=== PATIENT | female | born 1975 | race Caucasian/White ===

== ENCOUNTER 2023-10-15 19:53 | Inpatient (IN) | payer OTHER ==
[2023-10-16] MEDS ORDERED: BENZONATATE 200 MG CAPSULE PO PRN (02:25)
[2023-10-16] MEDS ORDERED: ACETAMINOPHEN 325 MG TABLET (FP) PO PRN (02:25)
[2023-10-16] MEDS ORDERED: POLYETHYLENE GLYCOL (HEALTHYLAX) 3350 17 GM PACKET PO PRN (02:25)
[2023-10-16] MEDS ORDERED: IBUPROFEN 600 MG TABLET (FP) PO PRN (02:25)
[2023-10-16] MEDS ORDERED: MAG HYDROX/AL HYDROX/SIMETH 30 ML UNIT-DOSE CUP PO PRN (02:25)
[2023-10-16] MEDS ORDERED: NALOXONE HCL 0.4 MG/ML VIAL IM PRN (02:25)
[2023-10-16] MEDS ORDERED: NALOXONE HCL (KLOXXADO) 8 MG SPRAY NS PRN (02:25)
[2023-10-16] MEDS ORDERED: guaiFENesin 600 MG TABLET.ER (FP) PO PRN (02:25)
[2023-10-16] MEDS ORDERED: P-EPHED 60MG/TRIPROLIDI 2.5MG TABLET PO PRN (02:25)
[2023-10-16] MEDS ORDERED: BISACODYL 5 MG TABLET.DR (FP) PO PRN (02:25)
[2023-10-16] MEDS ORDERED: LOPERAMIDE HCL 2 MG CAPSULE PO PRN (02:25)
[2023-10-16] MEDS ORDERED: MAGNESIUM HYDROX 2400MG/30ML ORAL SUSPENSION 30 ML CUP PO PRN (02:25)
[2023-10-16] MEDS ORDERED: BENZOCAINE/MENTHOL (CHLORASEPTIC ) LOZENGE MM PRN (02:25)
[2023-10-16] MEDS: QUEtiapine FUMARATE 300 MG TABLET PO ONE (03:20)
[2023-10-16] MEDS: traZODone HCL 50 MG TABLET (FP) PO ONE (03:20)
[2023-10-16] MEDS ORDERED: methaDONE HCL 10 MG TABLET PO SCH (08:15)
[2023-10-16] MEDS ORDERED: TUBERCULIN PPD 5 TU/0.1ML VIAL ID ONE (11:39)
[2023-10-16] MEDS: GABAPENTIN 300 MG CAPSULE PO SCH (11:50)
[2023-10-16] MEDS: CITALOPRAM HYDROBROMIDE 20 MG TABLET PO SCH (11:51)
[2023-10-16] MEDS: PRENATAL VITAMINS W/ FOLIC ACID TABLET (FP) PO SCH (11:51)
[2023-10-16] MEDS: PANTOPRAZOLE 20 MG TABLET PO SCH (11:53)
[2023-10-16] MEDS: TUBERCULIN PPD 5 TU/0.1ML SYRINGE (IN PATIENT USE ONLY) ID ONE (11:57)
[2023-10-16 14:40] LABS: EPI CELLS >36 /uL (0-25.1); HYALINE CASTS 1 /uL (0-3.1); PH,URINE 5.5 (5.0-8.0); URINE APPEARANCE CLEAR; URINE BACTERIA 450 /uL (0-1359); URINE BILIRUBIN NEGATIVE (NEGATIVE); URINE COLOR YELLOW; URINE GLUCOSE (UA) NEGATIVE (NEGATIVE); URINE KETONE NEGATIVE (NEGATIVE); URINE LEUK ESTERASE TRACE (NEGATIVE); URINE NITRITE NEGATIVE (NEGATIVE); URINE PROTEIN NEGATIVE (NEGATIVE); URINE RBC 16 /uL (0-23.9); URINE UROBILINOGEN 0.2 mg/dL (0.2-1.0); URINE WBC 78 /uL (0-25.8)
[2023-10-16] MEDS: THIAMINE 100 MG TABLET PO SCH (21:18)
[2023-10-16] MEDS: QUEtiapine FUMARATE 300 MG TABLET PO SCH (21:18)
[2023-10-17 11:38] LABS: HEMATOCRIT 34.2 % (32.4-45.2); HEMOGLOBIN 11.6 GM/dL (10.7-15.3); MCH 29.2 pg (25.7-33.7); MEAN CELL VOLUME 85.9 fl (80-96); MEAN PLT VOLUME 9.8 fl (7.5-11.1); PLATELET COUNT 135 10^3/uL (134-434); RBC 3.98 M/mm3 (3.60-5.2); RDW 14.5 % (11.6-15.6); WHITE BLOOD COUNT 3.2 K/mm3 (4.0-10.0)
[2023-10-17 12:08] LABS: POTASSIUM 3.8 mmol/L (3.5-5.1)
[2023-10-17 12:21] LABS: BLOOD UREA NITROGEN 33.2 mg/dL (7-18); CALCIUM 8.4 mg/dL (8.5-10.1)
[2023-10-17 12:24] LABS: CREATININE 0.7 mg/dL (0.55-1.3)
[2023-10-17 12:25] LABS: BILIRUBIN,TOTAL 0.2 mg/dL (0.2-1)
[2023-10-17] MEDS: DOCUSATE SODIUM 100 MG CAPSULE (FP) PO PRN (21:21)
[2023-10-17] MEDS: traZODone HCL 100 MG TABLET (FP) PO SCH (21:22)
[2023-10-17] MEDS: GABAPENTIN 400 MG CAPSULE PO SCH (21:22)
[2023-10-17] MEDS: METHOCARBAMOL 500 MG TABLET PO PRN (21:24)
[2023-10-18] MEDS: PANTOPRAZOLE 20 MG TABLET PO SCH (06:57)
[2023-10-18 12:21] LABS: INR 1.04 (0.83-1.09); PROTHROMBIN TIME (PATIENT) 12.1 SEC (9.7-13.0)
[2023-10-20] MEDS: CHOLECALCIFEROL (VIT D3) 400 UNIT (10 MCG) TABLET PO SCH (10:11)
[2023-10-22] MEDS: PANTOPRAZOLE 20 MG TABLET PO SCH (12:05)
[2023-10-25] MEDS: GABAPENTIN 300 MG CAPSULE PO SCH (21:19)
[2023-10-26] MEDS: ONDANSETRON *ODT* 4 MG TABLET SL ONE (10:05)
[2023-10-26] MEDS: methaDONE HCL 10 MG TABLET PO ONE ×2 (11:11→14:44)
[2023-10-26] MEDS: LACTULOSE 20 GM/30 ML UDC (FOR ORAL USE ONLY) PO SCH (14:41)
[2023-10-27 07:14] VITALS: RESP 16
[2023-10-29 06:48] VITALS: BP 102/70; PULSE 83; TEMP 96.7
[2023-10-29 13:03] LABS: BASO % 0.4 % (0-2.0); EOS % 2.8 % (0-4.5); HEMATOCRIT 35.9 % (32.4-45.2); HEMOGLOBIN 11.8 GM/dL (10.7-15.3); LYMPH % 34.7 % (8-40); MCH 28.7 pg (25.7-33.7); MEAN PLT VOLUME 9.8 fl (7.5-11.1); MONO % 11.5 % (3.8-10.2); NEUT % 50.6 % (42.8-82.8); PLATELET COUNT 131 10^3/uL (134-434); POTASSIUM 4.3 mmol/L (3.5-5.1); RBC 4.13 M/mm3 (3.60-5.2); RDW 15.4 % (11.6-15.6); WHITE BLOOD COUNT 3.9 K/mm3 (4.0-10.0)
[2023-10-29 13:11] LABS: CREATININE 0.7 mg/dL (0.55-1.3)
[2023-10-29 13:12] LABS: BILIRUBIN,TOTAL 0.3 mg/dL (0.2-1)
[2023-10-29 13:13] LABS: CALCIUM 9.3 mg/dL (8.5-10.1)
[2023-10-29 13:15] LABS: ALBUMIN 3.4 g/dl (3.4-5.0); BLOOD UREA NITROGEN 25.6 mg/dL (7-18)
[2023-10-29] MEDS: IBUPROFEN 400 MG TABLET (FP) PO PRN (13:31)
== END 2023-10-29 13:55 | disposition home or self-care (01) | DRG 772 ==
LOC: YASAS 19:53 → Y5N 10-16 02:59
PROVIDERS: ADMIT Allergy & Immunology; ATTEND Psychiatry & Neurology Pain Medicine
PROC: HZ42ZZZ Group Counseling for Substance Abuse Treatment, Cognitive-Behavioral (ICD-10-PCS; principal; 2023-10-16)
DX: F10.20 Alcohol dependence, uncomplicated (principal); F11.20 Opioid dependence, uncomplicated; F17.210 Nicotine dependence, cigarettes, uncomplicated; F31.9 Bipolar disorder, unspecified; F19.280 Other psychoactive substance dependence with psychoactive substance-induced anxiety disorder; F19.282 Other psychoactive substance dependence with psychoactive substance-induced sleep disorder; E72.20 Disorder of urea cycle metabolism, unspecified; K21.9 Gastro-esophageal reflux disease without esophagitis; M19.041 Primary osteoarthritis, right hand; M19.042 Primary osteoarthritis, left hand; Z91.410 Personal history of adult physical and sexual abuse; Z63.0 Problems in relationship with spouse or partner; Z59.01 Sheltered homelessness; Z56.0 Unemployment, unspecified
CPT/HCPCS: 36415; 80053; 80305; 80307; 81003; 81025; 82140; 82306; 83735; 85025; 85027; 85610; 86780; 86803; 87522; 93005; 93010; Q0162

== ENCOUNTER 2024-04-04 18:18 | Inpatient (IN) | payer OTHER ==
[2024-04-04 18:56] VITALS: BMI 20.2
[2024-04-04] MEDS ORDERED: P-EPHED 60MG/TRIPROLIDI 2.5MG TABLET PO PRN (19:34)
[2024-04-04] MEDS ORDERED: ONDANSETRON *ODT* 4 MG TABLET SL PRN (19:34)
[2024-04-04] MEDS ORDERED: NALOXONE (NARCAN) HCL 4 MG/0.1 ML SPRAY NS PRN (19:34)
[2024-04-04] MEDS ORDERED: BENZONATATE 200 MG CAPSULE PO PRN (19:34)
[2024-04-04] MEDS ORDERED: ACETAMINOPHEN 325 MG TABLET (FP) PO PRN (19:34)
[2024-04-04] MEDS ORDERED: BISMUTH SUBSALICYLATE 524 MG/30 ML PO PRN (19:34)
[2024-04-04] MEDS ORDERED: DICYCLOMINE HCL 10 MG CAPSULE PO PRN (19:34)
[2024-04-04] MEDS ORDERED: IBUPROFEN 600 MG TABLET (FP) PO PRN (19:34)
[2024-04-04] MEDS ORDERED: POLYETHYLENE GLYCOL (HEALTHYLAX) 3350 17 GM PACKET PO PRN (19:34)
[2024-04-04] MEDS ORDERED: BENZOCAINE/MENTHOL (CHLORASEPTIC ) LOZENGE MM PRN (19:34)
[2024-04-04] MEDS ORDERED: IBUPROFEN 400 MG TABLET (FP) PO PRN (19:34)
[2024-04-04] MEDS ORDERED: LOPERAMIDE HCL 2 MG CAPSULE PO PRN (19:34)
[2024-04-04] MEDS ORDERED: guaiFENesin 600 MG TABLET.ER (FP) PO PRN (19:34)
[2024-04-04] MEDS ORDERED: NICOTINE POLACRILEX 2 MG GUM BUC PRN (19:34)
[2024-04-04] MEDS ORDERED: NICOTINE POLACRILEX 2 MG LOZENGE BC PRN (19:34)
[2024-04-04] MEDS ORDERED: MAG HYDROX/AL HYDROX/SIMETH 30 ML UNIT-DOSE CUP PO PRN (19:34)
[2024-04-04] MEDS ORDERED: MAGNESIUM HYDROX 2400MG/30ML ORAL SUSPENSION 30 ML CUP PO PRN (19:34)
[2024-04-05] MEDS ORDERED: ACETAMINOPHEN 325 MG TABLET (FP) ONE (03:13)
[2024-04-05] MEDS: NALOXONE (NYS OPIOID OVERDOSE PROGRAM) 4 MG/0.1 ML SPRAY NS ONE (03:48)
[2024-04-05] MEDS: THIAMINE 100 MG TABLET PO SCH (03:49)
[2024-04-05] MEDS: MELATONIN 5 MG TABLETS PO SCH (03:49)
[2024-04-05] MEDS: PANTOPRAZOLE 20 MG TABLET PO SCH (07:21)
[2024-04-05] MEDS: PRENATAL VITAMINS W/ FOLIC ACID TABLET (FP) PO SCH (10:01)
[2024-04-05] MEDS: methaDONE HCL 10 MG TABLET PO SCH (11:06)
[2024-04-05] MEDS: CITALOPRAM HYDROBROMIDE 20 MG TABLET PO SCH (11:32)
[2024-04-05] MEDS: GABAPENTIN 300 MG CAPSULE PO SCH (13:26)
[2024-04-05] MEDS ORDERED: traZODone HCL 100 MG TABLET (FP) PO SCH (22:00)
[2024-04-05] MEDS: QUEtiapine FUMARATE 300 MG TABLET PO SCH (22:29)
[2024-04-05] MEDS: METHOCARBAMOL 500 MG TABLET PO PRN (22:31)
[2024-04-07] MEDS ORDERED: NALOXONE (NYS OPIOID OVERDOSE PROGRAM) 4 MG/0.1 ML SPRAY NS PRN (12:04)
[2024-04-07 12:59] VITALS: BP 118/58; PULSE 76; RESP 16; TEMP 97.4
== END 2024-04-07 14:50 | disposition home or self-care (01) | DRG 773 ==
LOC: YASAS 18:18 → Y6N 04-05 02:41
PROVIDERS: ADMIT Allergy & Immunology; ATTEND Surgery
PROC: HZ2ZZZZ Detoxification Services for Substance Abuse Treatment (ICD-10-PCS; principal; 2024-04-05)
DX: F10.230 Alcohol dependence with withdrawal, uncomplicated (principal); F13.20 Sedative, hypnotic or anxiolytic dependence, uncomplicated; F11.20 Opioid dependence, uncomplicated; F17.213 Nicotine dependence, cigarettes, with withdrawal; F25.0 Schizoaffective disorder, bipolar type; F19.282 Other psychoactive substance dependence with psychoactive substance-induced sleep disorder; F19.280 Other psychoactive substance dependence with psychoactive substance-induced anxiety disorder; F19.24 Other psychoactive substance dependence with psychoactive substance-induced mood disorder; K21.9 Gastro-esophageal reflux disease without esophagitis; M19.041 Primary osteoarthritis, right hand; M19.042 Primary osteoarthritis, left hand; Z86.69 Personal history of other diseases of the nervous system and sense organs; S09.90XA Unspecified injury of head, initial encounter; W07.XXXA Fall from chair, initial encounter; Y92.238 Other place in hospital as the place of occurrence of the external cause; Z56.0 Unemployment, unspecified; Z59.01 Sheltered homelessness
CPT/HCPCS: 70450-TC; 72125-TC; 80305; 80307; 81025; 93005; 93010

== ENCOUNTER 2024-11-23 10:34 | Inpatient (IN) | payer OTHER ==
[2024-11-23 11:17] VITALS: BMI 26.6
[2024-11-23] MEDS ORDERED: DICYCLOMINE HCL 10 MG CAPSULE PO PRN (12:06)
[2024-11-23] MEDS ORDERED: BENZOCAINE/MENTHOL (CHLORASEPTIC ) LOZENGE MM PRN (12:06)
[2024-11-23] MEDS ORDERED: NALOXONE (NARCAN) HCL 4 MG/0.1 ML SPRAY NS PRN (12:06)
[2024-11-23] MEDS ORDERED: BENZONATATE 200 MG CAPSULE PO PRN (12:06)
[2024-11-23] MEDS ORDERED: ACETAMINOPHEN 325 MG TABLET (FP) PO PRN (12:06)
[2024-11-23] MEDS ORDERED: ONDANSETRON *ODT* 4 MG TABLET SL PRN (12:06)
[2024-11-23] MEDS ORDERED: LOPERAMIDE HCL 2 MG CAPSULE PO PRN (12:06)
[2024-11-23] MEDS ORDERED: NICOTINE POLACRILEX 2 MG LOZENGE BC PRN (12:06)
[2024-11-23] MEDS ORDERED: IBUPROFEN 400 MG TABLET (FP) PO PRN (12:06)
[2024-11-23] MEDS ORDERED: MAGNESIUM HYDROX 2400MG/30ML ORAL SUSPENSION 30 ML CUP PO PRN (12:06)
[2024-11-23] MEDS ORDERED: MAG HYDROX/AL HYDROX/SIMETH 30 ML UNIT-DOSE CUP PO PRN (12:06)
[2024-11-23] MEDS ORDERED: POLYETHYLENE GLYCOL (HEALTHYLAX) 3350 17 GM PACKET PO PRN (12:06)
[2024-11-23] MEDS ORDERED: BISMUTH SUBSALICYLATE 524 MG/30 ML PO PRN (12:06)
[2024-11-23] MEDS: MELATONIN 5 MG TABLETS PO SCH (22:33)
[2024-11-23] MEDS: THIAMINE 100 MG TABLET PO SCH (22:33)
[2024-11-23] MEDS: METHOCARBAMOL 500 MG TABLET PO PRN (22:33)
[2024-11-23] MEDS: IBUPROFEN 600 MG TABLET (FP) PO PRN (22:36)
[2024-11-24] MEDS ORDERED: methaDONE HCL 10 MG TABLET PO ONE (08:48)
[2024-11-24] MEDS: PRENATAL VITAMINS W/ FOLIC ACID TABLET (FP) PO SCH (09:32)
[2024-11-24 10:01] LABS: HEMATOCRIT 37.1 % (34.1-44.9); HEMOGLOBIN 11.5 g/dL (11.2-15.7); MEAN CELL VOLUME 88.8 fl (79.4-94.8); MEAN PLT VOLUME 11.5 fl (9.4-12.3); PLATELET COUNT 144 x10^3/uL (182-369); RDW 15.2 % (12.2-17.1)
[2024-11-24] MEDS: guaiFENesin 600 MG TABLET.ER (FP) PO PRN (10:08)
[2024-11-24] MEDS: diazePAM 5 MG TABLET PO SCH (10:09)
[2024-11-24 10:13] LABS: CHLORIDE 106 mmol/L (98-107); SODIUM 141 mmol/L (136-145)
[2024-11-24 10:29] LABS: ANION GAP 6 mmol/L (4-13); BLOOD UREA NITROGEN 21.8 mg/dL (7-18); CO2 29 mmol/L (21-32); GLUCOSE,RANDOM 147 mg/dL (74-106)
[2024-11-24 10:32] LABS: CREATININE 0.7 mg/dL (0.55-1.3); SGOT/AST 18 U/L (15-37); SGPT/ALT 24 U/L (13-61)
[2024-11-24 10:34] LABS: BILIRUBIN,TOTAL 0.2 mg/dL (0.2-1)
[2024-11-24 10:35] LABS: ALK PHOS 137 U/L (45-117)
[2024-11-24] MEDS: FAMOTIDINE 20 MG TABLET PO SCH (11:24)
[2024-11-24] MEDS: QUEtiapine FUMARATE 300 MG TABLET PO SCH (22:08)
[2024-11-24] MEDS: GABAPENTIN 400 MG CAPSULE PO SCH (22:08)
[2024-11-25] MEDS: diazePAM 5 MG TABLET PO SCH (05:56)
[2024-11-25] MEDS ORDERED: methaDONE HCL 40 MG DISPERSABLE TABLET PO ONE (09:09)
[2024-11-25] MEDS: CITALOPRAM HYDROBROMIDE 20 MG TABLET PO SCH (09:35)
[2024-11-25] MEDS: cloNIDine HCL 0.1 MG TABLET PO SCH (13:11)
[2024-11-25] MEDS: diazePAM 5 MG TABLET PO PRN (17:27)
[2024-11-25] MEDS: NICOTINE POLACRILEX 2 MG GUM BUC PRN (22:06)
[2024-11-26] MEDS: FAMOTIDINE 20 MG TABLET PO SCH (05:38)
[2024-11-26] MEDS: diazePAM 5 MG TABLET PO SCH (05:39)
[2024-11-26] MEDS ORDERED: methaDONE HCL 40 MG DISPERSABLE TABLET PO SCH (06:00)
[2024-11-26] MEDS: methaDONE HCL 10 MG TABLET PO ONE (10:44)
[2024-11-27] MEDS ORDERED: cloNIDine HCL 0.1 MG TABLET PO PRN
[2024-11-27] MEDS: diazePAM 5 MG TABLET PO ONE (06:06)
[2024-11-27] MEDS ORDERED: methaDONE HCL 10 MG TABLET PO ONE (10:00)
[2024-11-27] MEDS: methaDONE HCL 10 MG TABLET PO ONE (11:30)
[2024-11-27 13:05] VITALS: BP 104/60; PULSE 89; RESP 18; TEMP 97.6
[2024-11-28] MEDS ORDERED: methaDONE HCL 10 MG TABLET PO ONE (10:00)
[2024-11-30] MEDS ORDERED: methaDONE HCL 10 MG TABLET PO ONE (10:00)
== END 2024-11-27 02:25 | disposition other institution (70) | DRG 773 ==
LOC: YASAS 10:34 → Y6N 13:01
PROVIDERS: ADMIT Allergy & Immunology; ATTEND Allergy & Immunology
PROC: HZ2ZZZZ Detoxification Services for Substance Abuse Treatment (ICD-10-PCS; principal; 2024-11-23)
DX: F10.230 Alcohol dependence with withdrawal, uncomplicated (principal); F13.230 Sedative, hypnotic or anxiolytic dependence with withdrawal, uncomplicated; F11.20 Opioid dependence, uncomplicated; F14.20 Cocaine dependence, uncomplicated; F17.210 Nicotine dependence, cigarettes, uncomplicated; F25.0 Schizoaffective disorder, bipolar type; F31.9 Bipolar disorder, unspecified; F19.24 Other psychoactive substance dependence with psychoactive substance-induced mood disorder; F41.9 Anxiety disorder, unspecified; K21.9 Gastro-esophageal reflux disease without esophagitis; M19.041 Primary osteoarthritis, right hand; M19.042 Primary osteoarthritis, left hand; Z99.89 Dependence on other enabling machines and devices; Z59.01 Sheltered homelessness
CPT/HCPCS: 36415; 80053; 80305; 80307; 81025; 85027; 86780

== ENCOUNTER 2024-11-27 14:28 | Inpatient (IN) | payer OTHER ==
[2024-11-27] MEDS ORDERED: MAG HYDROX/AL HYDROX/SIMETH 30 ML UNIT-DOSE CUP PO PRN (15:37)
[2024-11-27] MEDS ORDERED: MAGNESIUM HYDROX 2400MG/30ML ORAL SUSPENSION 30 ML CUP PO PRN (15:37)
[2024-11-27] MEDS ORDERED: BENZONATATE 200 MG CAPSULE PO PRN (15:37)
[2024-11-27] MEDS ORDERED: NICOTINE 14 MG/24 HOURS TOPICAL PATCH TD PRN (15:37)
[2024-11-27] MEDS ORDERED: guaiFENesin 600 MG TABLET.ER (FP) PO PRN (15:37)
[2024-11-27] MEDS ORDERED: NALOXONE HCL 0.4 MG/ML VIAL IVPUSH PRN (15:37)
[2024-11-27] MEDS ORDERED: BENZOCAINE/MENTHOL (CHLORASEPTIC ) LOZENGE MM PRN (15:37)
[2024-11-27] MEDS ORDERED: POLYETHYLENE GLYCOL (HEALTHYLAX) 3350 17 GM PACKET PO PRN (15:37)
[2024-11-27] MEDS ORDERED: NALOXONE (NARCAN) HCL 4 MG/0.1 ML SPRAY NS PRN (15:37)
[2024-11-27] MEDS ORDERED: LOPERAMIDE HCL 2 MG CAPSULE PO PRN (15:37)
[2024-11-27] MEDS ORDERED: hydrOXYzine PAMOATE 25 MG CAPSULE (FP) PO PRN (15:37)
[2024-11-27] MEDS ORDERED: METHOCARBAMOL 500 MG TABLET PO PRN (15:37)
[2024-11-27] MEDS ORDERED: NICOTINE POLACRILEX 4 MG LOZENGE BC PRN (15:37)
[2024-11-27] MEDS ORDERED: NICOTINE POLACRILEX 4 MG GUM BUC PRN (15:37)
[2024-11-27] MEDS: IBUPROFEN 600 MG TABLET (FP) PO PRN (17:57)
[2024-11-27] MEDS: ONDANSETRON *ODT* 4 MG TABLET SL PRN (17:57)
[2024-11-27] MEDS: GABAPENTIN 400 MG CAPSULE PO SCH (23:49)
[2024-11-27] MEDS: THIAMINE 100 MG TABLET PO SCH (23:49)
[2024-11-27] MEDS: QUEtiapine FUMARATE 300 MG TABLET PO SCH (23:49)
[2024-11-27] MEDS: MELATONIN 5 MG TABLETS PO SCH (23:49)
[2024-11-28] MEDS ORDERED: methaDONE HCL 40 MG DISPERSABLE TABLET PO SCH (06:00)
[2024-11-28] MEDS: FAMOTIDINE 20 MG TABLET PO SCH (07:15)
[2024-11-28] MEDS: IBUPROFEN 400 MG TABLET (FP) PO PRN (09:44)
[2024-11-28] MEDS: CITALOPRAM HYDROBROMIDE 20 MG TABLET PO SCH (09:44)
[2024-11-28] MEDS: PRENATAL VITAMINS W/ FOLIC ACID TABLET (FP) PO SCH (09:44)
[2024-11-28] MEDS ORDERED: TUBERCULIN PPD 5 TU/0.1ML VIAL ID ONE (12:24)
[2024-11-28 13:08] LABS: HIV INTERPRETATION NEGATIVE (NEGATIVE)
[2024-11-28] MEDS: ACETAMINOPHEN 325 MG TABLET (FP) PO PRN (17:24)
[2024-11-28 20:09] VITALS: BP 131/74; PULSE 63; RESP 16; TEMP 97.3
[2024-11-28] MEDS ORDERED: MELATONIN 5 MG TABLETS PO PRN (22:00)
== END 2024-11-29 08:44 | disposition short-term general hospital (02) | DRG 772 ==
LOC: YASAS 14:28 → Y5N 14:31
PROVIDERS: ADMIT Psychiatry & Neurology Pain Medicine; ATTEND Psychiatry & Neurology Pain Medicine
PROC: HZ42ZZZ Group Counseling for Substance Abuse Treatment, Cognitive-Behavioral (ICD-10-PCS; principal; 2024-11-27)
DX: F11.10 Opioid abuse, uncomplicated (principal); F14.20 Cocaine dependence, uncomplicated; F10.20 Alcohol dependence, uncomplicated; F17.210 Nicotine dependence, cigarettes, uncomplicated; F31.9 Bipolar disorder, unspecified; F41.9 Anxiety disorder, unspecified; J18.9 Pneumonia, unspecified organism; K21.9 Gastro-esophageal reflux disease without esophagitis; M19.041 Primary osteoarthritis, right hand; M19.042 Primary osteoarthritis, left hand; R09.02 Hypoxemia; R40.0 Somnolence; Z59.01 Sheltered homelessness
CPT/HCPCS: 0241U-QW; 36415; 87389; 87811; Q0162

== ENCOUNTER 2024-12-20 11:59 | Inpatient (IN) | payer OTHER ==
[2024-12-20] MEDS ORDERED: ACETAMINOPHEN 325 MG TABLET (FP) PO PRN (13:04)
[2024-12-20] MEDS ORDERED: MAGNESIUM HYDROX 2400MG/30ML ORAL SUSPENSION 30 ML CUP PO PRN (13:04)
[2024-12-20] MEDS ORDERED: IBUPROFEN 400 MG TABLET (FP) PO PRN (13:04)
[2024-12-20] MEDS ORDERED: POLYETHYLENE GLYCOL (HEALTHYLAX) 3350 17 GM PACKET PO PRN (13:04)
[2024-12-20] MEDS ORDERED: LOPERAMIDE HCL 2 MG CAPSULE PO PRN (13:04)
[2024-12-20] MEDS ORDERED: MAG HYDROX/AL HYDROX/SIMETH 30 ML UNIT-DOSE CUP PO PRN (13:04)
[2024-12-20] MEDS ORDERED: BENZONATATE 200 MG CAPSULE PO PRN (13:04)
[2024-12-20] MEDS: GABAPENTIN 400 MG CAPSULE PO SCH (13:36)
[2024-12-20] MEDS ORDERED: QUEtiapine FUMARATE 100 MG TABLET (FP) ONE (21:42)
[2024-12-20] MEDS: THIAMINE 100 MG TABLET PO SCH (22:55)
[2024-12-20] MEDS: MELATONIN 5 MG TABLETS PO SCH (22:55)
[2024-12-20] MEDS: METHOCARBAMOL 500 MG TABLET PO PRN (22:56)
[2024-12-20] MEDS: hydrOXYzine PAMOATE 25 MG CAPSULE (FP) PO PRN (22:56)
[2024-12-20] MEDS: guaiFENesin 600 MG TABLET.ER (FP) PO PRN (22:59)
[2024-12-20] MEDS: NICOTINE POLACRILEX 2 MG GUM BUC PRN (23:00)
[2024-12-21] MEDS: NICOTINE 7 MG/24 HOURS TOPICAL PATCH TD SCH (07:07)
[2024-12-21] MEDS: PRENATAL VITAMINS W/ FOLIC ACID TABLET (FP) PO SCH (07:07)
[2024-12-21] MEDS: PANTOPRAZOLE 40 MG TABLET PO SCH (08:11)
[2024-12-21] MEDS: CITALOPRAM HYDROBROMIDE 20 MG TABLET PO SCH (12:50)
[2024-12-21] MEDS: IBUPROFEN 600 MG TABLET (FP) PO PRN (12:54)
[2024-12-21] MEDS ORDERED: QUEtiapine FUMARATE 100 MG TABLET (FP) ONE (21:06)
[2024-12-22] MEDS: GABAPENTIN 100 MG CAPSULE PO PRN (21:25)
[2024-12-24] MEDS: GABAPENTIN 100 MG CAPSULE PO SCH (21:30)
[2024-12-25] MEDS: BENZOCAINE/MENTHOL (CHLORASEPTIC ) LOZENGE MM PRN (06:06)
[2024-12-25] MEDS: ONDANSETRON *ODT* 4 MG TABLET SL PRN (18:58)
[2024-12-25] MEDS: TRIMETHOBENZAMIDE HCL 200MG/2ML INJ IM ONE (22:04)
[2024-12-27] MEDS: hydrOXYzine PAMOATE 25 MG CAPSULE (FP) PO PRN (07:14)
[2024-12-30] MEDS: GABAPENTIN 100 MG CAPSULE PO SCH (21:27)
[2025-01-04 06:58] VITALS: RESP 16
[2025-01-05 07:53] VITALS: BP 127/66; PULSE 60; TEMP 97.9
== END 2025-01-05 10:10 | disposition home or self-care (01) | DRG 772 ==
LOC: YASAS 11:59 → Y3NR 12:01 → Y5N 12-22 11:37
PROVIDERS: ADMIT Psychiatry & Neurology Pain Medicine; ATTEND Psychiatry & Neurology Pain Medicine
PROC: HZ42ZZZ Group Counseling for Substance Abuse Treatment, Cognitive-Behavioral (ICD-10-PCS; principal; 2024-12-20)
DX: F11.20 Opioid dependence, uncomplicated (principal); F10.20 Alcohol dependence, uncomplicated; F13.20 Sedative, hypnotic or anxiolytic dependence, uncomplicated; F17.210 Nicotine dependence, cigarettes, uncomplicated; K21.9 Gastro-esophageal reflux disease without esophagitis; F31.9 Bipolar disorder, unspecified
CPT/HCPCS: 36415; 86803; 87522; Q0162